=== PATIENT | male | born 1980 | race Caucasian/White ===

== ENCOUNTER 2020-03-21 10:25 | Outpatient (CLI) | payer SELFPAY ==
--- NOTE | 2020-03-21 10:38 | XR_ITS ---
WS: [id number] CHEST 2 VIEWS HISTORY: SHORTNESS OF BREATH COMPARISON: None available. Lungs: Clear with no abnormality. No pleural effusion or pneumothorax. Cardiac size: Normal. Mediastinum/Aorta: Normal mediastinum. Bones: Normal. Surgical clips at the lower neck and thoracic inlet. XR/XR chest 2V* [id number] IMPRESSION: Normal chest.
--- NOTE | 2020-03-21 10:38 | XR_ITS ---
WS: [id number] LUMBAR SPINE: 3 VIEWS TECHNIQUE: AP, lateral and L5-S1 spot. HISTORY: LEFT LEG PARESTHESIA, PARESTHESIA OF SKIN COMPARISON: None available. Posterior lumbar alignment is normal. Pedicles are all identified. No fractures. Disc spaces are preserved. Small osteophytes anteriorly from L3 and L4. Larger osteophytes in the low er thoracic spine. SI joints are symmetric bilaterally. No soft tissue abnormalities. XR/XR lumbar spine 2-3V* [id number] IMPRESSION: 1. No lumbar spine fracture. 2. Mild lumbar spondylosis.
== END 2020-03-21 10:26 | disposition home or self-care (01) ==
LOC: RADWPI 10:29
PROVIDERS: Visit Provider Nurse Practitioner Family
DX: R06.02 Shortness of breath (principal); R20.2 Paresthesia of skin; M47.816 Spondylosis without myelopathy or radiculopathy, lumbar region
CPT/HCPCS: 71046; 72100

== ENCOUNTER 2023-07-26 10:40 | Emergency (ER) | payer OTHER, SELFPAY ==
[2023-07-26 10:56] VITALS: BP 190/116; PULSE 81; RESP 16; TEMP 36.7; O2SAT 96; BMI 39.4
--- NOTE | 2023-07-26 11:55 | ED_ITS ---
HPI - General Adult General: Chief complaint: Animal Bite Stated complaint: tick bite Time Seen by Provider: 07/26/23 11:14 Source: patient and family Mode of arrival: ambulatory Limitations: no limitations History of Present Illness: Patient is a 43-year-old male who presents to ED today with concerns of a tick bite. Patient states a few days ago he noticed a small seed tick to the anterior aspect of his upper right thigh. He states he immediately picked the tick off. States that could not have been attached for more than a few hours. He states since then he noticed a small amount of redness surrounding the bite. He has been scratching and picking at the lesion. No bull's-eye lesion. Sesar coyle states over the past several days he just has not felt well . States he has intermittently felt nauseous. He did have a small amount of abdominal lower discomfort but this has subsided. Patient states he contacted his primary care office who told him to come to the emergency department because he could have a bloodstream infection from the tick bite . Patient has not been running fever s. Of note he arrives to the ED significantly hypertensive with a BP of 190/116. Patient states he never checks his blood pressure at home. He does take lisinopril 20 Mg daily. He also states his blood sugars have been running high-normally in the 200s. He states he only takes glimepiride for his diabetes. He has an upcoming appointment with endocrinology/Dr. Jensen. Denies chest pain, SOB, headache or visual changes. Onset (ago): day(s) Relieving factors: none Exacerbating factors: none Associated symptoms: Reports no associated symptoms and nausea; Deny chest pain, confusion, dyspnea, headache(s), malaise, rash, palpitations, syncope or vomiting Treatments prior to arrival: none Review of Systems Const: Denies: fever(s), chills, body aches, fatigue or malaise Eyes: Denies: change in vision, blurry vision, photophobia, floaters or seeing flashes ENMT: Denies: throat pain, odynophagia, ear or mastoid pain, nasal discharge, nasal congestion or sinus pain Card: Denies: chest pain, palpitations, irregular heart rhythm, edema, swelling of feet/ankles, lightheadedness, syncope, pre-syncope, dyspnea on exertion, orthopnea, leg pain with exertion or acrocyanosis Resp: Denies: dyspnea, productive cough, non-productive cough, wheezing, hemoptysis or chest congestion GI: Reports: abdominal pain (subsided now) and nausea; Denies: vomiting or hematemesis : Denies: flank pain, difficulty urinating, dysuria, urinary frequency, urinary urgency or urinary hesitancy Musc: Denies: neck pain, back pain, extremity pain or joint pain Skin/Breast: Denies: rash Neuro: Denies: headache(s), numbness in extremities, weakness in extremities, sensory changes, difficulty walking, dizziness, vertigo or confusion Physical Exam Const: COMMON NORMALS: no acute distress, patient oriented x3, no limitations and alert GENERAL APPEARANCE: cooperative NUTRITIONAL APPEARANCE: obese ORIENTATION/CONSCIOUSNESS: Yes awake, Yes oriented to person, Yes oriented to place and Yes oriented to time HENMT: COMMON NORMALS: normocephalic and atraumatic HEAD & SCALP: normal to inspection, normocephalic and atraumatic FACE & SINUS: normal facial exam Eye: COMMON NORMALS: no scleral icterus GENERAL EYE: appearance normal, both eyes and all related structures Neck/C-Spine: COMMON NORMALS: full ROM, no lymphadenopathy, supple and no meningeal signs Chest: COMMONS NORMALS: normal inspection of the chest Resp: COMMON NORMALS: normal respiratory effort and clear to auscultation bilaterally AUSCULTATION: clear to auscultation bilaterally Cardio: COMMON NORMALS: regular rate and regular rhythm RATE: regular rate RHYTHM: regular rhythm GI: COMMON NORMALS: Normal to inspection, nondistended, normoactive bowel sounds present, Soft to palpation, non-tender, No hepatosplenomegaly present and no masses PALPATION: Yes Soft to palpation and Yes No hepatosplenomegaly present : COMMON NORMALS: Yes no CVA tenderness BLADDER/KIDNEY EXAM: Yes no CVA tenderness Back/Pelvis: COMMON NORMALS: no CVA tenderness, thoracic and lumbar spine norm al to inspection, no thoracic nor lumbar tenderness and thoraco-lumbar ROM normal Extremity: COMMON NORMALS: normal to inspection GENERAL: Yes normal exam except as noted Neuro: BRAYAN COMA SCALE: document GCS findings [place] coma scale eye opening: Spontaneous [place] coma scale verbal response: Orientated Brayan coma scale motor response: Obey commands [place] coma scale total score: 15 COMMON NORMALS: patient oriented x3, moves all extremities, no focal motor deficits, no sensory deficits noted and gait normal SENSORIUM/ORIENTATION: Yes alert, Yes oriented to person, Yes oriented to place and Yes oriented to time MENINGEAL SIGNS: Yes no meningeal signs Skin: NARRATIVE SKIN EXAM: pt has a small 1cm erythematous nodule with central scab from recent tick bite; he has reaction erythema where bandage was applied but otherwise there is no redness/surrounding cellulitis; no erythema migrans lesion RASHES: no rashes Course Vital Signs: Vital signs: Vital Signs Temperature 98.0 F 07/26/23 10:56 Pulse Rate 75 07/26/23 13:56 Respiratory Rate 18 07/26/23 13:56 Blood Pressure 120/93 07/26/23 13:56 Pulse Oximetry 93 07/26/23 13:56 Oxygen Delivery Me thod Room Air 07/26/23 12:41 MDM - General Adult Medical Decision Making Patient arrives over concern of a tick bite. Clinically tick bite appears benign. There is nothing to suggest Lyme disease. He does not really complain of any signs or symptoms of tick illness however tick panel was collected. He arrives significantly hypertensive with a blood pressure 190/116. This resolved on its own without medication and during my reassessment blood pressure was down in the 140s/80s. Blood pressure at time of discharge is 120/93. Commend he c ontinue taking his lisinopril 20 Mg tablets and keep a blood pressure log at home. If it continually runs elevated he may start taking an additional lisinopril in the evening. Blood work overall is benign apart from his elevated blood sugar. He states sugars normally run in the 200s. He has an upcoming appointment with insole and outsole preparer Dr. Jensen for further evaluation and initiation of insulin therapy. We discussed at length dietary control and I will give him several handouts in regards to diabetic diet. At this time patient is stable for discharge from an emergency standpoint. Recommend follow-up with primary care. Return to ED precautions given. Lab Data 07/26/23 12:32 07/26/23 12:32 Laboratory Results WBC 7.10 10^3/uL (3.29-11.43) 07/26/23 12:32 RBC 5.30 10^6/uL (3.85-5.65) 07/26/23 12:32 Hgb 16.00 g/dL (11.27-16.99) 07/26/23 12:32 Hct 47.2 % (37-53) 07/26/23 12:32 MCV 89.1 fl (82-101) 07/26/23 12:32 MCH 30.2 pg (27-33) 07/26/23 12:32 MCHC 33.9 g/dL (30-55) 07/26/23 12:32 RDW 12.5 % (12.1-15.1) 07/26/23 12:32 Plt Count 228 10^3/cmm (157-399) 07/26/23 12:32 MPV 10.0 fL (7.4-10.4) 07/26/23 12:32 Neut % (Auto) 59.7 % 07/26/23 12:32 Lymph % (Auto) 32.3 % 07/26/23 12:32 Holmes % (Auto) 6.3 % 07/26/23 12:32 Eos % (Auto) 0.8 % 07/26/23 12:32 Baso % (Auto) 0.6 % 07/26/23 12:32 Neut # (Auto) 4.24 10^3/uL (1.8-7.7) 07/26/23 12:32 Lymph # (Auto) 2.3 10^3/uL (0.8-4.8) 07/26/23 12:32 Holmes # (Auto) 0.5 10^3/uL (0.2-0.9) 07/26/23 12:32 Eos # (Auto) 0.1 10^3/uL (0.0-0.8) 07/26/23 12:32 Baso # (Auto) 0.0 10^3/uL (0.0-0.1) 07/26/23 12:32 Nucleated RBC % (auto) 0 % 07/26/23 12:32 Nucleated RBCs # 0.0 /100WBC 07/26/23 12:32 Sodium 136 mmol/L (136-145) 07/26/23 12:32 Potassium 4.0 mmol/L (3.5-5.1) 07/26/23 12:32 Chloride 100 mmol/L (98-107) 07/26/23 12:32 Carbon Dioxide 26 mmol/L (22-29) 07/26/23 12:32 Anion Gap 14.0 (5-19) 07/26/23 12:32 BUN 13 mg/dL (6-20) 07/26/23 12:32 Creatinine 0.7 mg/dL (0.7-1.2) 07/26/23 12:32 GFR Calculation 122.5 mL/min (90-130) 07/26/23 12:32 Glucose 316 mg/dL (65-115) H 07/26/23 12:32 Calculated Osmolality 294 mOsm/kg (285-295) 07/26/23 12:32 Calcium 9.2 mg/dL (8.5-10.5) 07/26/23 12:32 Total Bilirubin 0.4 mg/dL (0.15-1.2) 07/26/23 12:32 AST 21 U/L (0-40) 07/26/23 12:32 ALT 33 U/L (0-41) 07/26/23 12:32 Alkaline Phosphatase 76 U/L (40-130) 07/26/23 12:32 Total Protein 7.2 g/dL (6.6-8.7) 07/26/23 12:32 Albumin 4.3 g/dL (3.5-5.2) 07/26/23 12:32 Globulin 2.9 g/dL (1.3-4.6) 07/26/23 12:32 Urine Color Yellow (Yellow) 07/26/23 12:17 Urine Appearance Clear (CLEAR) 07/26/23 12:17 Urine pH 7 (5-7) 07/26/23 12:17 Ur Specific [place] 1.010 (1.005-1.030) 07/26/23 12:17 Urine Protein Neg (Negative) 07/26/23 12:17 Urine Glucose (UA) 4+ (Normal) H 07/26/23 12:17 Urine Ketones 2+ (Negative) H 07/26/23 12:17 Urine Blood Neg (Negative) 07/26/23 12:17 Urine Nitrate Negative (Negative) 07/26/23 12:17 Urine Bilirubin Neg (Negative) 07/26/23 12:17 Urine Urobilinogen Norm mg/dL (Negative) 07/26/23 12:17 Ur Leukocyte Esterase Negative (Negative) 07/26/23 12:17 No radiology studies performed this visit Discharge Plan Discharge Patient Disposition: Home Clinical Impression: Tick bite Qualifiers: Encounter type: initial encounter Site of tick bite: hip Laterality: right Qualified Code(s): S70.261A - Insect bite (nonvenomous), right hip, initial encounter Hypertension Qualifiers: Hypertension type: unspecified Qualified Code(s): I10 - Essential (primary) hypertension Diabetes mellitus Qualifiers: Diabetes mellitus type: type 2 Diabetes mellitus buttermaker continuous churn insulin use: unspecified buttermaker continuous churn insulin use status Diabetes mellitus complication status: without complication Qualified Code(s): E11.9 - Type 2 diabetes mellitus without complications Condition: Stable Prescriptions: No Action vitamin B complex [B-Complex] Tablet 1 tab PO DAILY PRN (Reason: unknown) atorvastatin 40 mg tablet 40 mg PO QPM Aspir-81 81 mg Tablet,Delayed Release (Dr/Ec) 81 mg PO .ONE TIME DOSE lisinopril 10 mg tablet 20 mg PO QAM glimepiride 4 mg tablet 4 mg PO BID levothyroxine 200 mcg tablet 200 mcg PO QAM Saline [place] 0.9 % Aerosol,[place] See Rx Instructions .ROUTE .COMPLEX Rx Instructions: 2 sprays qam magnesium oxide 400 mg magnesium Tablet 400 mg PO DAILY PRN (Reason: unknown) albuterol sulfate 90 mcg/actuation HFA aerosol inhaler 2 puff inhalation Q6H PRN (Reason: Shortness Of Breath) Flonase Allergy Relief 50 mcg/actuation spray,suspension 2 spray intranasal DAILY PRN (Reason: Allergy Symptoms) Rx Instructions: administer into each nostril Discharge Orders: Discharge ED (Routine); Ordered 07/26/23 Ordered By: Shyann Soliman Referrals: Arleen Barraza FNP [Primary Care Provider] - Patient Instructions: Diabetes and Diet, Basic Carbohydrate Counting (DC), Meal Planning with the Plate Method (DC), Meal Planning with Diabetes Exchanges (DC), Diabetes and Nutrition (ED) Activity Restrictions/Additional Instructions: As we discussed your blood pressure was very elevated upon arrival to the emergency department at 190/116. This has seemed to resolve on its own without medications and repeat blood pressure was 149/88. As we discussed I would like you to keep a blood pressure log at home and monitor twice daily. If blood pressure continually runs 160/100 he may take an additional lisinopril in the evening. You need to follow-up with primary care so they can adjust medications if needed based on these logs. As we discussed I would like you to continue your current plan to follow-up with Dr. Jensen for further evaluation and better control of your diabetes. I have given you information in regards to diabetic diet to hopefully better control this until you can see her. Coding Level of Care Code ED Permit Review Assistant for Agnes Nevarez
[2023-07-26 12:15] VITALS: BP 230/120
[2023-07-26 12:41] VITALS: BP 163/93; PULSE 68; RESP 12; O2SAT 94
[2023-07-26 12:41] LABS: Basophils % 0.6 %; Eosinophils # 0.1 10^3/uL (0.0-0.8); Eosinophils % 0.8 %; Hematocrit 47.2 % (37-53); Lymphocytes # 2.3 10^3/uL (0.8-4.8); Lymphocytes % 32.3 %; Mean Corpuscular HGB Conc 33.9 g/dL (30-55); Mean Corpuscular Hemoglobin 30.2 pg (27-33); Mean Corpuscular Volume 89.1 fl (82-101); Monocytes # 0.5 10^3/uL (0.2-0.9); Monocytes % 6.3 %; Neutrophils # 4.24 10^3/uL (1.8-7.7); Neutrophils % 59.7 %; Nucleated Red Blood Cells % 0 %; Platelet Count 228 10^3/cmm (157-399); Red Cell Distribution Width 12.5 % (12.1-15.1)
[2023-07-26 12:44] LABS: Add Urine Microscopic? NO; Charge for UA Resulting for Rev
[2023-07-26 12:58] LABS: Bilirubin Urine Neg (Negative); Blood Urine Neg (Negative); Glucose Urine UA 4+ (Normal); Ketones Urine 2+ (Negative); Leukocyte Esterase Urine Negative (Negative); Nitrate Urine Negative (Negative); Protein Urine Neg (Negative); Urine Appearance Clear (CLEAR); Urine Color Yellow (Yellow); Urobilinogen Urine Norm (Negative); pH Urine 7 (5-7)
[2023-07-26 12:59] VITALS: BP 149/88; PULSE 66; RESP 12; O2SAT 96
[2023-07-26 13:03] LABS: Alanine Aminotransferase 33 U/L (0-41); Albumin Level 4.3 g/dL (3.5-5.2); Alkaline Phosphatase 76 U/L (40-130); Aspartate Amino Transferase 21 U/L (0-40); Blood Urea Nitrogen 13 mg/dL (6-20); Calcium 9.2 mg/dL (8.5-10.5); Carbon Dioxide 26 mmol/L (22-29); Chloride 100 mmol/L (98-107); Globulin 2.9 g/dL (1.3-4.6); Glomerular Filtration Rate 122.5 mL/min (90-130); Glucose 316 mg/dL (65-115); Osmolality Calculated 294 mOsm/kg (285-295); Sodium 136 mmol/L (136-145); Total Bilirubin 0.4 mg/dL (0.15-1.2); Total Protein 7.2 g/dL (6.6-8.7)
[2023-07-26 13:56] VITALS: BP 120/93; PULSE 75; RESP 18; O2SAT 93
[2023-07-27 14:55] LABS: Lyme AB Screen <0.90 index
[2023-07-29 01:20] LABS: E. Chaffeensis AB IGG <1:64; E. Chaffeensis AB IGM <1:20
[2023-07-29 16:18] LABS: RMSF IGG NOT DETECTED; RMSF IGM NOT DETECTED
== END 2023-07-26 13:53 | disposition home or self-care (01) ==
PROVIDERS: Emergency Provider Physician Assistant; PCP Nurse Practitioner Family
DX: S70.261A Insect bite (nonvenomous), right hip, initial encounter (principal); I10 Essential (primary) hypertension; E11.9 Type 2 diabetes mellitus without complications; W57.XXXA Bitten or stung by nonvenomous insect and other nonvenomous arthropods, initial encounter; Z79.82 Long term (current) use of aspirin; Z79.84 Long term (current) use of oral hypoglycemic drugs
CPT/HCPCS: 36415; 80053; 81003; 85025; 86618; 86666; 86757; 99283

== ENCOUNTER → 2023-08-18 11:32 | Outpatient (BNVA) | payer OTHER, SELFPAY | PROVIDERS: PCP Nurse Practitioner Family; Referring Provider Nurse Practitioner Family; Visit Provider Internal Medicine | DX: E11.9 Type 2 diabetes mellitus without complications (principal) | CPT/HCPCS: 36415; 80053; 80061; 82044; 83036; 84439; 84443 ==

== ENCOUNTER → 2023-09-09 09:55 | Outpatient (BNVA) | payer OTHER, SELFPAY | PROVIDERS: PCP Nurse Practitioner; Visit Provider Nurse Practitioner | DX: I10 Essential (primary) hypertension (principal); E11.9 Type 2 diabetes mellitus without complications; R42 Dizziness and giddiness; M19.011 Primary osteoarthritis, right shoulder; R20.0 Anesthesia of skin; R20.2 Paresthesia of skin; Z87.891 Personal history of nicotine dependence | CPT/HCPCS: 71046 ==

== ENCOUNTER → 2023-10-18 09:05 | Outpatient (BNVA) | payer OTHER, SELFPAY | PROVIDERS: PCP Nurse Practitioner; Referring Provider Nurse Practitioner; Visit Provider Nurse Practitioner | DX: M25.561 Pain in right knee (principal); M25.552 Pain in left hip; M25.511 Pain in right shoulder | CPT/HCPCS: 73030; 73502; 73562 ==

== ENCOUNTER 2023-10-20 09:14 | Outpatient (CLI) | payer OTHER, SELFPAY ==
--- NOTE | 2023-10-20 10:00 | US_ITS ---
WS: [id number] ULTRASOUND THYROID TECHNIQUE: Ultrasound of the thyroid. CLINICAL INFORMATION: R22.1 - Localized swelling, mass and lump, neck COMPARISON: None. FINDINGS: Thyroid: Prior postoperative changes subtotal thyroidectomy. No thyroid tissue in the LEFT thyroid be d or isthmus Solid-appearing heterogeneous nodule RIGHT thyroid measuring 2.9 x 2.4 x 4.1 cm. Cervical lymphadenopathy: None. IMPRESSION: 1. 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 2. Prior postoperative changes subtotal thyroidectomy. No thyroid tissue in the LEFT thyroid bed or isthmus.
[2023-10-20 10:06] LABS: Creatinine Urine, Random 94 mg/dL (39-259); Microalbumin Random Urine 4 ug/dL (0-20)
[2023-10-20 10:09] LABS: Microalbum Creatinine Ratio Ur 43 mg/dL (0-20)
[2023-10-20 10:16] LABS: Alanine Aminotransferase 27 U/L (0-41); Albumin Level 4.7 g/dL (3.5-5.2); Alkaline Phosphatase 74 U/L (40-130); Anion Gap 17.4 (5-19); Aspartate Amino Transferase 18 U/L (0-40); Blood Urea Nitrogen 14 mg/dL (6-20); Calcium 9.5 mg/dL (8.5-10.5); Carbon Dioxide 25 mmol/L (22-29); Chloride 100 mmol/L (98-107); Chol HDL Ratio 3.95 mg/dL (1.0-5.00); Cholesterol 146 mg/dL (0-200); Globulin 3.3 g/dL (1.3-4.6); Glucose 188 mg/dL (65-115); HDL Cholesterol 37 mg/dL (60-100); LDL Cholesterol Calculated 83 mg/dL (50-129); LDL HDL Ratio 2.24 RATIO (0.00-3.22); Osmolality Calculated 291 mOsm/kg (285-295); Potassium 4.4 mmol/L (3.5-5.1); Sodium 138 mmol/L (136-145); Thyroid Stimulating Hormone 0.26 uIU/mL (0.27-4.20); Total Bilirubin 0.7 mg/dL (0.15-1.2); Triglycerides 128 mg/dL (0-150)
[2023-10-20 12:14] LABS: Estmated Average Glucose 229; Hemoglobin A1C 9.6 % (4.0-6.0)
[2023-10-20 13:16] LABS: Free T4 Free Thyroxine 2.06 ng/dL (0.82-1.77)
== END 2023-10-20 09:15 | disposition home or self-care (01) ==
LOC: RAD 09:16
PROVIDERS: Internal Medicine; PCP Nurse Practitioner; Visit Provider Nurse Practitioner
DX: E04.1 Nontoxic single thyroid nodule (principal); R22.1 Localized swelling, mass and lump, neck; E11.9 Type 2 diabetes mellitus without complications; E89.0 Postprocedural hypothyroidism
CPT/HCPCS: 36415; 76536; 80053; 80061; 82044; 83036; 84439; 84443

== ENCOUNTER → 2023-10-27 09:06 | Outpatient (BNVA) | payer OTHER, SELFPAY | PROVIDERS: PCP Nurse Practitioner; Referring Provider Internal Medicine; Visit Provider Internal Medicine | DX: E03.9 Hypothyroidism, unspecified (principal); E16.2 Hypoglycemia, unspecified; E78.00 Pure hypercholesterolemia, unspecified | CPT/HCPCS: 83001; 83002; 84403; 84439 ==

== ENCOUNTER → 2023-10-28 13:04 | Outpatient (BNVA) | payer OTHER, SELFPAY | PROVIDERS: PCP Nurse Practitioner; Referring Provider Nurse Practitioner; Visit Provider Internal Medicine | DX: I10 Essential (primary) hypertension (principal) | CPT/HCPCS: 93005 ==

== ENCOUNTER → 2023-11-03 10:29 | Outpatient (BNVA) | payer OTHER, SELFPAY | PROVIDERS: PCP Nurse Practitioner; Visit Provider Nurse Practitioner | DX: E11.9 Type 2 diabetes mellitus without complications (principal); E03.9 Hypothyroidism, unspecified; E16.2 Hypoglycemia, unspecified; E78.00 Pure hypercholesterolemia, unspecified | CPT/HCPCS: 84402; 84439 ==

== ENCOUNTER 2023-11-10 13:00 | Outpatient (CLI) | payer OTHER, SELFPAY ==
--- NOTE | 2023-11-10 11:00 | EV_ITS ---
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 Interpretive Statements Event monitor: 1. Monitoring period was from 11/10/2023 till 12/09/2023. 2. Baseline heart rhythm was normal sinus rhythm with heart rate of 74 bpm. 3. Average heart rate was 78 bpm. Maximum heart rate was 144 bpm and patient was in sinus tachycardia at that time. This was recorded on 11/28/2023 at 1:26 PM. Minimum heart rate was 46 bpm. Patient had sinus bradycardia. This was recorded at 6:51 AM on 11/11/2023. Less than 1% ventricular ectopic beats. Less than 1% supraventricular ectopic beats. 4. No atrial fibrillation or arrhythmias seen. 5. No pauses seen 6. Patient reported symptoms of dizziness, lightheadedness did not correlate with arrhythmias. Electronically Signed On 12-29-2023 10:47:03 OFFICE ADMIN by Arthur Marcelino M.D. [id number]
== END 2023-11-10 13:01 | disposition home or self-care (01) ==
LOC: RAD 11-15 09:36
PROVIDERS: PCP Nurse Practitioner; Visit Provider Internal Medicine
DX: R00.2 Palpitations (principal); M25.511 Pain in right shoulder; G89.29 Other chronic pain
CPT/HCPCS: 73030; 93228

== ENCOUNTER → 2023-11-17 09:52 | Outpatient (BNVA) | payer OTHER, SELFPAY | PROVIDERS: PCP Nurse Practitioner; Referring Provider Internal Medicine; Visit Provider Internal Medicine | DX: E03.9 Hypothyroidism, unspecified (principal) | CPT/HCPCS: 84439 ==

== ENCOUNTER 2023-12-09 09:02 | Outpatient (CLI) | payer OTHER, SELFPAY ==
--- NOTE | 2023-12-09 09:30 | MR_ITS ---
WS: [id number] MRI RIGHT SHOULDER HISTORY: M25.511 - Pain in right shoulder COMPARISON: Radiograph 11/10/2023 TECHNIQUE: Multiplanar sequences of the shoulder joint are submitted. Moderate AC joint arthritis. 4 mm osteophyte encroaching upon the myotendinous portion of the suprasp inatus. Mild narrowing of the AC joint. Small erosive changes in the head of the clavicle. No signifi cant subacromial subdeltoid bursal fluid. No subacromial impingement. Biceps tendon in normal positio n. No os acromion. No muscle atrophy or edema. Very mild tendinopathy in the distal supraspinatus tendon. No tear. Tracy l glenohumeral joint. Small subacromial cysts are noted in the posterolateral humeral head. Cortical irregularity involving the anterior humeral head. Cortical irregularities and osteochondral changes a re near the site of the biceps tendon attachment. There is a small amount of fluid in the subacromial bursa and extending into the axillary pouch. There is abnormal signal throughout a large portion of the superior labrum. There is also a truncated appearance of the inferior labrum. IMPRESSION: 1. Moderate AC joint arthritis with a 4 mm osteophyte encroaching upon the supraspinatus muscle and t endon. 2. No rotator cuff tear. 3. Erosive changes in the distal clavicle. 4. Abnormal signal in the superior and inferior labrum. Suspicious for tears. 5. Cortical irregularity involving the posterolateral and the anterior humeral head. 6. Small joint effusion.
== END 2023-12-09 09:03 | disposition home or self-care (01) ==
LOC: RAD 09:03
PROVIDERS: PCP Nurse Practitioner; Visit Provider Specialist
DX: M19.011 Primary osteoarthritis, right shoulder (principal); M25.711 Osteophyte, right shoulder; R93.7 Abnormal findings on diagnostic imaging of other parts of musculoskeletal system; G89.29 Other chronic pain; M25.411 Effusion, right shoulder
CPT/HCPCS: 73221

== ENCOUNTER → 2023-12-22 08:08 | Outpatient (BNVA) | payer OTHER, SELFPAY | PROVIDERS: PCP Nurse Practitioner; Referring Provider Internal Medicine; Visit Provider Internal Medicine | DX: E03.9 Hypothyroidism, unspecified (principal); R79.89 Other specified abnormal findings of blood chemistry | CPT/HCPCS: 84403; 84439; 84443 ==

== ENCOUNTER → 2023-12-29 10:42 | Outpatient (BNVA) | payer OTHER, SELFPAY | PROVIDERS: PCP Nurse Practitioner; Visit Provider Internal Medicine | DX: E11.9 Type 2 diabetes mellitus without complications (principal); E16.2 Hypoglycemia, unspecified; E78.00 Pure hypercholesterolemia, unspecified | CPT/HCPCS: 36415; 82784; 83516; G0103 ==

== ENCOUNTER → 2024-01-05 09:43 | Outpatient (BNVA) | payer OTHER, SELFPAY | PROVIDERS: PCP Nurse Practitioner; Visit Provider Nurse Practitioner | DX: T78.1XXA Other adverse food reactions, not elsewhere classified, initial encounter (principal); Y99.9 Unspecified external cause status | CPT/HCPCS: 86003 ==

== ENCOUNTER 2024-01-06 10:51 | Outpatient (CLI) | payer OTHER, SELFPAY ==
--- NOTE | 2024-01-06 11:42 | ECG_ITS ---
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 Interpretive Statements NAME OF STUDY: TREADMILL STRESS TEST INDICATION: [Chest Pain, ] EXERCISE DATA: The patient was exercised by Obey protocol. Baseline heart rate was 125/90 beats per minute. Baseline blood pressure was 125/90 millimeters of mercury. Maximal predicted heart rate was 176 beats per minute. Maximum heart rate achieved was 150, which was 85% of the maximum predicted heart rate. Maximum blood pressure was 185/95 millimeters of mercury. Total exercise time was 11 minutes and 1 seconds. Maximum METs achieved was 14.3. The reason for ending the test was targy heart rate achieved. The patient complained of shortness of breath during the stress test, which then resolved at the end of the test. ELECTROCARDIOGRAM: BASELINE: Showed sinus rhythm, normal axis, no significant ST-T changes at the baseline noted. [] EXERCISE: At the peak exercise level, [] No significant ST-T changes suggestive of ischemia noted. [] RECOVERY: During the recovery period, heart rate dropped appropriately. No significant ST-T changes in the recovery suggestive of ischemia noted. [] CONCLUSION: 1. Exercise capacity is excellent 2. Heart rate response was appropriate 3. Blood pressure response was appropriate 4. Symptoms not suggestive of ischemia. 5. Stress test does not show ischemia Electronically Signed On 01-13-2024 11:06:44 CDT by Arthur Marcelino M.D. [id number]
[2024-01-06 12:05] VITALS: BMI 35.2
[2024-01-06 12:58] VITALS: BP 168/98; PULSE 96
== END 2024-01-06 10:52 | disposition home or self-care (01) ==
PROVIDERS: PCP Nurse Practitioner; Visit Provider Internal Medicine
DX: R07.9 Chest pain, unspecified (principal)
CPT/HCPCS: 93017

== ENCOUNTER 2024-01-13 08:51 | Outpatient (CLI) | payer OTHER, SELFPAY ==
--- NOTE | 2024-01-13 09:00 | USCV_ITS ---
Gabriel Davies Age: 43 Gender: M : 1980 Exam Date: 01/13/2024 09:07 Ordering Phys: Sarai AbelP CONTINUUM OF CARE MANAGER Technologist: PATRICIA [place] [facility] [place]: VERTIGO AND HTN BP: 164 / 90 HR: 47 Rhythm: Sinus Technical Quality: Adequate MEASUREMENTS (Male / Female) Normal Values 2D ECHO LV Diastolic Diameter PLAX 4.2 cm 4.2 - 5.9 / 3.9 - 5.3 cm IVS Diastolic Thickness 1.5 cm 0.6 - 1.0 / 0.6 - 0.9 cm IVS Systolic Thickness 2.0 cm LVPW Diastolic Thickness 2.2 cm 0.6 - 1.0 / 0.6 - 0.9 cm LVPW Systolic Thickness 3.1 cm LVOT Diameter 2.0 cm LV Ejection Fraction 2D Teich 51.3 % LV Ejection Fraction MOD 2C 56.7 % LV Ejection Fraction 2C AL 58.9 % LA Diameter 3.9 cm RA Systolic Volume 4C AL 33.4 ml RA Systolic Volume 4C MOD 32.3 ml Aorta at Sinotubular Diameter 2.6 cm IVC Diameter 1.7 cm M-MODE LA Ao Ratio MM 0.9 AV Cusp Separation MM 1.6 cm DOPPLER AV Peak Velocity 134.0 cm/s LVOT Peak Velocity 109.0 cm/s AV Area Cont Eq vti 3.0 cm squared AV Area Cont Eq pk 2.5 cm squared MV Peak Velocity 87.0 cm/s MV Area PHT 3.5 cm squared Mitral E to A Ratio 1.3 TR Peak Velocity 145.0 cm/s TR Peak Gradient 8.4 mmHg TR Mean Velocity 119.0 cm/s TR Mean Gradient 6.1 mmHg TR Velocity Time Integral 39.8 cm TV Peak E Velocity 51.0 cm/s Right Atrial Pressure 3.0 mmHg Pulmonary Artery Systolic Pressu 11.4 mmHg PV Peak Velocity 115.0 cm/s RV Ejection Time 0.4 s FINDINGS Left Ventricle Left ventricle is normal in size. LV systolic function is normal with EF of 55-60%. No regional wall motion normalities are seen. Diastolic function is normal Right Ventricle Normal in size and function Right Atrium Normal in size Left Atrium Normal in size Mitral Valve Structurally normal mitral valve. Mild mitral regurgitation. Aortic Valve Structurally normal aortic valve. No significant stenosis or regurgitation. Tricuspid Valve Insufficient TR jet to evaluate RVSP Pulmonic Valve Not well-visualized Pericardium Normal Aorta Normal in size IVC Normal in size CONCLUSIONS LV systolic function is normal with EF of 55-60%. Diastolic function is normal Mild mitral regurgitation No comparison studies are available. Arthur Marcelino MD (Electronically Signed) Final Date: 23 January 2024 13:38 S
--- NOTE | 2024-01-13 12:45 | US_ITS ---
WS: [id number] ULTRASOUND THYROID FNA CLINICAL INFORMATION: thyroid nodule TECHNIQUE: Ultrasound-guided FNA FINDINGS: The procedure including risks, benefits, and complications were discussed with the patient who agreed to proceed. Timeout was performed. Using sterile technique patient was prepped and draped in usual sterile fashion. After 1% lidocaine, using ultrasound guidance, a 25-gauge needle was advanc ed into the RIGHT thyroid nodule. 5 passes were made with active aspiration. Pathology was present fo r slide preparation. No immediate complications. Patient remained in the ultrasound suite 10 minutes postprocedure with intermittent ultrasound to ens ure no hematoma. No hematoma 10 minutes postprocedure. IMPRESSION: Uncomplicated ultrasound-guided thyroid FNA RIGHT thyroid nodule
== END 2024-01-13 08:52 | disposition home or self-care (01) ==
PROVIDERS: PCP Nurse Practitioner; Visit Provider Internal Medicine
DX: E04.1 Nontoxic single thyroid nodule (principal); I10 Essential (primary) hypertension; R42 Dizziness and giddiness; I34.0 Nonrheumatic mitral (valve) insufficiency
CPT/HCPCS: 10005; 88173; 93306

== ENCOUNTER 2024-02-02 07:46 | Outpatient (CLI) | payer OTHER, SELFPAY ==
--- NOTE | 2024-02-02 07:45 | US_ITS ---
WS: [id number] ULTRASOUND ABDOMEN LIMITED CLINICAL INFORMATION: celiac disease COMPARISON: None. FINDINGS: Liver Size: Enlarged Craniocaudal length: 23.2 cm. Echogenicity: Coarse Surface nodularity: None. Mass (size and location): None. Normal flow in the main portal vein Bile ducts Intrahepatic ducts: Normal. Common bile duct diameter: 0.4 cm. Gallbladder Normal. Gallstones: None. Gallbladder sludge: None. Gallbladder wall thickening: None. Pericholecystic fluid: None. Sonographic Denis sign: Absent. Pancreas Normal as visualized. Right kidney: Normal. Hydronephrosis: None. Size: 13.6 cm x 5.5 cm x 6.4 cm. Abdominal aorta and IVC Visualized portions are normal. Ascites: None. IMPRESSION: 1. Hepatomegaly with coarse hepatic echogenicity likely due to fatty infiltration. Recommend correla tion with liver function tests. 2. Normal gallbladder and normal common bile duct. 3. No hydronephrosis in the RIGHT kidney. 4. No ascites.
--- NOTE | 2024-02-02 07:50 | MR_ITS ---
WS: [id number] MRI RIGHT SHOULDER ARTHROGRAM HISTORY: right shoulder injury COMPARISON: Noncontrast MRI shoulder 12/09/2023 TECHNIQUE: Pre and postcontrast imaging. Gadolinium mixture was injected under fluoroscopy. Coronal T 1 fat sat, sagittal T2 fat sat, coronal T2 fat sat, axial proton density, axial T1 nonfat saturation submitted. Uncomplicated access into the shoulder joint. The contrast injection was very difficult. The joint sp arnaldo appears to be very scarred down. Significant amount of pressure was needed to attempt distention of the joint. The needle was retracted slightly in an attempt to reposition the needle better into th e joint space. At that time the needle was external to the joint. Some of the contrast injected is ex ternal to the joint but I believe this is due to the repositioning of the needle. Previously described possible superior and inferior labral tears do not distend with the contrast inj ection. These are not likely labral tears. There is one area in which the contrast does extend throug h the subscapular tendon. Possibility of a subscapularis tendon tear should be considered. Patient wa s unable to remain still for this examination therefore there is some artifact from breathing motion. IMPRESSION: 1. No labral tears are identified on the arthrogram portion of this examination. 2. The injection into the joint space was extremely difficult. Favor the joint capsule is probably s carred down. After attempting to readjust the needle the injection became external to the joint space . Contrast is external to the joint space due to the injection. 3. Very small amount of increased contrast signal in the distal subscapularis tendon. This may be at the tendon tear or the external contrast injection. 4. No loose body. 5. Mild AC joint arthritis.
--- NOTE | 2024-02-02 08:30 | IR_ITS ---
WS: [email or web address] RIGHT SHOULDER ARTHROGRAM UNDER FLUOROSCOPY. PRIOR TO MRI EVALUATION. HISTORY: right shoulder injury COMPARISON: None available. FLUOROSCOPY TIME: 1min [id number] # of spot films: 1 Procedure, risks and complications were explained to the patient. Consent has been obtained. Under fluoroscopic guidance the skin is marked over the medial superior third of the humeral head, cl eansed with ChloraPrep and anesthetized with lidocaine. 22-gauge spinal needle is inserted to the cor debra of the humeral head. Test injection with Omnipaque reveals the needle is appropriately positioned in the joint. A mixture of 10 cc sterile saline, 5 cc Omnipaque and 0.1 mmol gadolinium are injected under fluoroscopic guidance. Patient tolerated the joint distention well. No complications. Very difficult injection of the contrast into the joint space. The capsule appeared scarred down with the joint space being very small. After reattempting positioning of the needle of the injection jessy me extracapsular. IMPRESSION: Slightly complicated RIGHT shoulder joint injection prior to MRI.
== END 2024-02-02 07:47 | disposition home or self-care (01) ==
LOC: RAD 07:46
PROVIDERS: PCP Nurse Practitioner; Visit Provider Surgery
DX: S43.431A Superior glenoid labrum lesion of right shoulder, initial encounter (principal); K90.0 Celiac disease; M19.011 Primary osteoarthritis, right shoulder; R16.0 Hepatomegaly, not elsewhere classified; X58.XXXA Exposure to other specified factors, initial encounter
CPT/HCPCS: 23350; 73222; 76705; 77002

== ENCOUNTER 2024-02-10 08:12 | Outpatient (CLI) | payer OTHER, SELFPAY ==
--- NOTE | 2024-02-10 08:00 | CT_ITS ---
WS: [email or web address] CT NECK WITH CONTRAST HISTORY: Thyroid nodule of the neck, prior LEFT thyroidectomy. TECHNIQUE: Contiguous 2 mm axial images are performed through the neck with intravenous contrast. Sag ittal and coronal reformats are also submitted. All CT scans at [facility] use at least one o f these dose optimization techniques: automated exposure control; mA and/or kV adjustment per patient size (includes targeted exams where dose is matched to clinical indication); or iterative reconstruc tion. CONTRAST: CONTRAST: Omnipaque 350; 100 mL IV. DLP: 246.95 mGy.cm COMPARISON: Soft tissue ultrasound 01/13/2024 Heterogeneous enhancing mass within the RIGHT thyroid. Mass extends over a length of 3.4 cm. Mass me asures 2.9 cm transversely and 2.6 cm anterior posterior. There are few calcifications and heterogene ity. Surgical clips are noted from prior LEFT thyroidectomy. Mass is similar in appearance and size c ompared to the thyroid evaluation on 01/13/2024. Oropharynx and nasopharynx are negative. Normal parapharyngeal fat. Submandibular glands and parotid glands are negative. There are small benign cervical chain lymph nodes. No adenopathy. No osseous abnormalities. Visualized portions of the skull base demonstrate no abnormalities. Orbits and globes are within norm al limits. No soft tissue masses. Small mucous retention cyst in the posterior LEFT sphenoid sinus. Lung apices are clear. IMPRESSION: 1. Heterogeneous RIGHT thyroid nodule measures 2.9 x 2.6 x 3.4 cm. Very similar in size as compared to the prior ultrasound on 01/12/2014. 2. Prior LEFT thyroidectomy. 3. No cervical chain adenopathy.
[2024-02-10] MEDS: iohexol 350 mg/mL 500 mL Btl (per mL) IV (09:02)
== END 2024-02-10 08:13 | disposition home or self-care (01) ==
LOC: RAD 08:12
PROVIDERS: PCP Nurse Practitioner; Visit Provider Otolaryngology
DX: E04.1 Nontoxic single thyroid nodule (principal)
CPT/HCPCS: 70491; Q9967

== ENCOUNTER 2024-04-05 06:00 | Outpatient (RCR) | payer OTHER, SELFPAY | END 2024-04-30 23:59 | disposition home or self-care (01) | LOC: MPT 06:00 | PROVIDERS: Visit Provider Specialist | DX: M54.2 Cervicalgia (principal); M75.01 Adhesive capsulitis of right shoulder | CPT/HCPCS: 97110; 97140; 97162; G0283 ==

== ENCOUNTER 2024-05-01 06:00 | Outpatient (RCR) | payer OTHER, SELFPAY | END 2024-05-31 23:59 | disposition home or self-care (01) | LOC: MPT 06:00 | PROVIDERS: Visit Provider Specialist | DX: M75.01 Adhesive capsulitis of right shoulder (principal) | CPT/HCPCS: 97110; 97140; G0283 ==

== ENCOUNTER 2024-06-01 06:00 | Outpatient (RCR) | payer OTHER, SELFPAY | END 2024-07-01 23:59 | disposition home or self-care (01) | LOC: MPT 06:00 | PROVIDERS: PCP Nurse Practitioner; Visit Provider Specialist | DX: M54.2 Cervicalgia (principal); M75.01 Adhesive capsulitis of right shoulder | CPT/HCPCS: 97110; 97140; G0283 ==

== ENCOUNTER 2024-06-08 09:01 | Outpatient (CLI) | payer OTHER, SELFPAY ==
--- NOTE | 2024-06-08 09:18 | XR_ITS ---
WS: [email or web address] XR shoulder LT min 2V* [id number] REASON FOR EXAM: S46.912A - Strain of unspecified muscle, fascia and tendo... FINDINGS: No fracture or focal bone lesion. The acromioclavicular joint is intact without significant narrowing. There is mild subchondral sclero sis and osteophytosis. The glenohumeral joint space is not optimally demonstrated. There does not appear to be significant n arrowing. There is minimal subchondral sclerosis in the acetabulum. Minimal sclerosis in the biceps tuberosity. 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 Minimal osteoarthritis in the glenohumeral joint. Minimal rotator cuff tendon arthropathy.
--- NOTE | 2024-06-08 09:41 | XR_ITS ---
WS: [email or web address] XR cervical spine 3V* [id number] REASON FOR EXAM: S16.1XXA - Strain of muscle, fascia and tendon at neck le... FINDINGS: Straightening of the normal lordosis of the cervical spine. Normal odontoid and vertebral bodies. Disc spaces are intact and relatively well preserved. Mild narrowing of the C5-C6 disc space with end plate sclerosis and posterior and anterior osteophytosis of C5 and C6. 2 mm of anterolisthesis of C4 on C5. Multiple surgical clips in the neck denoting previous thyroid surgery. There is mild displacement of the trachea to the left at the C7 level. This corresponds with the inho mogeneously enhancing mass in the right thyroid bed seen on the CT scan of 02/10/2024. XR/XR cervical spine 3V* [id number] IMPRESSION: Mild degenerative spondylosis. Mild mass effect on the trachea as above.
== END 2024-06-08 09:02 | disposition home or self-care (01) ==
LOC: RAD 09:05
PROVIDERS: PCP Nurse Practitioner; Visit Provider Nurse Practitioner
DX: S16.1XXA Strain of muscle, fascia and tendon at neck level, initial encounter (principal); S46.912A Strain of unspecified muscle, fascia and tendon at shoulder and upper arm level, left arm, initial encounter; M25.78 Osteophyte, vertebrae; M43.12 Spondylolisthesis, cervical region
CPT/HCPCS: 72040; 73030

== ENCOUNTER → 2024-06-15 10:46 | Outpatient (BNVA) | payer OTHER, SELFPAY | PROVIDERS: PCP Nurse Practitioner; Visit Provider Nurse Practitioner | DX: E11.9 Type 2 diabetes mellitus without complications (principal); E78.00 Pure hypercholesterolemia, unspecified; E16.2 Hypoglycemia, unspecified | CPT/HCPCS: 80053; 80061; 82043; 83036; 84403; 85025; G0103 ==

== ENCOUNTER → 2024-06-21 10:37 | Outpatient (BNVA) | payer OTHER, SELFPAY | PROVIDERS: PCP Nurse Practitioner; Visit Provider Internal Medicine | DX: E11.649 Type 2 diabetes mellitus with hypoglycemia without coma (principal); E03.9 Hypothyroidism, unspecified | CPT/HCPCS: 36415; 84439; 84443; 85025 ==

== ENCOUNTER → 2024-06-29 09:07 | Outpatient (BNVA) | payer OTHER, SELFPAY | PROVIDERS: PCP Nurse Practitioner; Referring Provider Nurse Practitioner; Visit Provider Orthopaedic Surgery | DX: M54.2 Cervicalgia (principal) | CPT/HCPCS: 72050 ==

== ENCOUNTER 2024-07-02 06:00 | Outpatient (RCR) | payer OTHER, SELFPAY | END 2024-07-26 23:59 | disposition home or self-care (01) | LOC: MPT 06:00 | PROVIDERS: PCP Nurse Practitioner; Visit Provider Specialist | DX: M75.01 Adhesive capsulitis of right shoulder (principal); M54.2 Cervicalgia | CPT/HCPCS: 97110; 97140; G0283 ==

== ENCOUNTER 2024-07-26 06:00 | Outpatient (RCR) | payer OTHER, SELFPAY | END 2024-07-31 23:59 | disposition home or self-care (01) | LOC: MPT 06:00 | PROVIDERS: PCP Nurse Practitioner; Visit Provider Orthopaedic Surgery | DX: M54.2 Cervicalgia (principal) | CPT/HCPCS: 97162 ==

== ENCOUNTER 2024-08-01 06:00 | Outpatient (RCR) | payer OTHER, SELFPAY | END 2024-08-31 23:59 | disposition home or self-care (01) | LOC: MPT 06:00 | PROVIDERS: PCP Nurse Practitioner; Visit Provider Orthopaedic Surgery | DX: M54.2 Cervicalgia (principal) | CPT/HCPCS: 97110; 97140; G0283 ==

== ENCOUNTER 2024-08-03 08:56 | Oncology outpatient (recurring) (ONCR) | payer OTHER, SELFPAY ==
[2024-08-03 09:45] LABS: Basophils # 0.1 10^3/uL (0.0-0.1); Basophils % 0.7 %; Eosinophils # 0.4 10^3/uL (0.0-0.8); Eosinophils % 5.3 %; Hematocrit 49.3 % (37-53); Lymphocytes # 2.2 10^3/uL (0.8-4.8); Lymphocytes % 30.6 %; Mean Corpuscular HGB Conc 32.3 g/dL (30-55); Mean Corpuscular Hemoglobin 29.9 pg (27-33); Mean Corpuscular Volume 92.7 fl (82-101); Mean Platelet Volume 9.9 fL (7.4-10.4); Monocytes # 0.5 10^3/uL (0.2-0.9); Monocytes % 6.4 %; Neutrophils # 4.08 10^3/uL (1.8-7.7); Neutrophils % 56.6 %; Nucleated Red Blood Cells % 0 %; Platelet Count 232 10^3/cmm (157-399); Red Blood Count 5.32 10^6/uL (3.85-5.65); Red Cell Distribution Width 13.9 % (12.1-15.1)
== END 2024-08-31 23:59 | disposition home or self-care (01) ==
PROVIDERS: PCP Nurse Practitioner; Visit Provider Internal Medicine
DX: R71.8 Other abnormality of red blood cells (principal)
CPT/HCPCS: 36415; 85025

== ENCOUNTER 2024-08-03 12:30 | Outpatient (CLI) | payer OTHER, SELFPAY | END 2024-08-03 12:31 | disposition home or self-care (01) | LOC: SLEEP 12:31 | PROVIDERS: PCP Nurse Practitioner; Visit Provider Internal Medicine | DX: G47.33 Obstructive sleep apnea (adult) (pediatric) (principal) | CPT/HCPCS: G0399 ==

== ENCOUNTER → 2024-08-30 08:03 | Outpatient (BNVA) | payer OTHER, SELFPAY | PROVIDERS: PCP Nurse Practitioner; Visit Provider Specialist | DX: M75.81 Other shoulder lesions, right shoulder (principal); M25.511 Pain in right shoulder; G89.29 Other chronic pain | CPT/HCPCS: 73030 ==

== ENCOUNTER 2024-09-01 06:00 | Outpatient (RCR) | payer OTHER, SELFPAY | END 2024-09-30 23:59 | disposition home or self-care (01) | LOC: MPT 06:00 | PROVIDERS: PCP Nurse Practitioner; Visit Provider Orthopaedic Surgery | DX: M54.2 Cervicalgia (principal) | CPT/HCPCS: 97110; 97140; G0283 ==

== ENCOUNTER 2024-10-01 06:00 | Outpatient (RCR) | payer OTHER, BC, MEDICAID, SELFPAY | END 2024-10-31 23:59 | disposition home or self-care (01) | LOC: MPT 06:00 | PROVIDERS: PCP Nurse Practitioner; Visit Provider Orthopaedic Surgery | DX: M54.2 Cervicalgia (principal) | CPT/HCPCS: 97110; 97140; G0283 ==

== ENCOUNTER 2024-10-05 07:58 | Outpatient (CLI) | payer OTHER, BC, MEDICAID, SELFPAY ==
--- NOTE | 2024-10-05 08:00 | IR_ITS ---
WS: [email or web address] RIGHT SHOULDER ARTHROGRAM UNDER FLUOROSCOPY. PRIOR TO MRI EVALUATION. HISTORY: right shoulder/frozen shoulder COMPARISON: None available. FLUOROSCOPY TIME: 1min [id number] # of spot films: 2 Procedure, risks and complications were explained to the patient. Consent has been obtained. Under fluoroscopic guidance the skin is marked over the medial superior third of the humeral head, cl eansed with ChloraPrep and anesthetized with lidocaine. 22-gauge spinal needle is inserted to the cor debra of the humeral head. Test injection with Omnipaque reveals the needle is appropriately positioned in the joint. A mixture of 10 cc sterile saline, 5 cc Omnipaque and 0.1 mmol gadolinium are injected under fluoroscopic guidance. Patient tolerated the joint distention well. No complications. Good contrast injection into the glenohumeral joint. No extravasation of contrast during injection. IR/IR arthrogram shoulderRT [id number] IMPRESSION: Uncomplicated RIGHT shoulder joint injection prior to MRI.
--- NOTE | 2024-10-05 08:06 | MR_ITS ---
WS: [email or web address] MRI RIGHT SHOULDER ARTHROGRAM, with and without contrast HISTORY: right shoulder/frozen shoulder COMPARISON: 12/09/2023, 10/05/2024 TECHNIQUE: Pre and postcontrast imaging. Gadolinium mixture was injected under fluoroscopy. Coronal T 1 fat sat, sagittal T2 fat sat, coronal T2 fat sat, axial proton density, axial T1 nonfat saturation views are submitted. Prearthrogram: Moderate to severe AC joint arthritis. Hypertrophic osteophytes with narrowing of the AC joint. Distal clavicular osteophytes encroach upon the supraspinatus. There is a small amount of f luid in the subacromial and subdeltoid bursa. Moderate subacromial impingement. Biceps tendon remains in the bicipital groove. There is no os acromion. No significant muscle atrophy or edema. Subchondral cyst at the insertion site of the supraspinatus t endon. There is a smaller insertion site tear involving the infraspinatus tendon. Tear extends throug h the articular surface. The bursal surface of the infraspinatus tendon is still intact. Mild tendino marcelo in the distal subscapularis tendon. Loss of the normal distal subscapularis tendon signal. Incr eased T2 signal involving the biceps tendon through the rotator cuff interval. Mild thickening of the axillary pouch. There is slight increased T2 signal and thickening of the coracohumeral ligament. No labral tears are identified. Intrasubstance degeneration and intermediate signal in the superior lab rum. Post arthrogram: None of the injected contrast extends into the subacromial or subdeltoid bursa. Geovanni entified is the articular surface insertion site tear of the infraspinatus. Tear does not extend comp letely through the tendon and there is no retraction of the tendon. There is a large tear involving the distal subscapularis tendon with injected contrast extending thro ugh the tear. Contrast communicates with the biceps tendon and rotator cuff interval. There is a larg e amount of contrast extending into the biceps tendon sheath. Middle glenohumeral ligament is small c aliber and lax. No contrast extends into the labrum. No labral tear is identified. MR/MR shoulder RT wo/w con [id number] IMPRESSION: 1. Large full-thickness tear involving the distal subscapularis tendon. Contra st communicates with the biceps tendon sheath and the rotator cuff interval. 2. No biceps tendon tear. 3. Insertion site tear of the infraspinatus tendon involves only the articular surface. 4. Moderate to severe AC joint arthritis with osteophyte encroachment upon the supraspinatus muscle and tendon.
[2024-10-05] MEDS: gadobenate dimeglumine 20 mL vial IV (09:21)
[2024-10-05] MEDS: iohexol 240 mg/mL 50 mL Btl 25 ML INTRA-ARTI (09:26)
== END 2024-10-05 07:59 | disposition home or self-care (01) ==
PROVIDERS: PCP Nurse Practitioner; Visit Provider Specialist
DX: M75.121 Complete rotator cuff tear or rupture of right shoulder, not specified as traumatic (principal); S46.091A Other injury of muscle(s) and tendon(s) of the rotator cuff of right shoulder, initial encounter; M19.011 Primary osteoarthritis, right shoulder; M25.711 Osteophyte, right shoulder; X58.XXXA Exposure to other specified factors, initial encounter
CPT/HCPCS: 23350; 73223; 77002

== ENCOUNTER → 2024-10-19 08:57 | Outpatient (BNVA) | payer OTHER, BC, MEDICAID, SELFPAY | PROVIDERS: PCP Nurse Practitioner; Visit Provider Orthopaedic Surgery | DX: M54.2 Cervicalgia (principal) | CPT/HCPCS: 72050 ==

== ENCOUNTER 2024-11-15 11:04 | Oncology outpatient (recurring) (ONCR) | payer OTHER, BC, MEDICAID, SELFPAY ==
--- NOTE | 2024-11-15 11:00 | MR_ITS ---
WS: [email or web address] MRI CERVICAL SPINE NONCONTRAST HISTORY: Neck Pain COMPARISON: None available. Technique: Multiplanar, multisequence noncontrast imaging of the cervical spine. Normal cervical alignment with no compression fracture or significant disc space narrowing. Signal within the cervical cord is normal. Visualized posterior fossa is unremarkable. Craniocervical junction, C1 and C2 relationship, odontoid process and soft tissues are normal. C2-C3: Normal. C3-C4: Normal. C4-C5: Normal. C5-C6: Small bilateral foraminal osteophytes. Very mild narrowing of the RIGHT foramen. C6-C7: Normal. C7-T1: Normal. Paraspinal soft tissue are normal. MR/MR cervical spin wo con* [id number] IMPRESSION: 1. No disc protrusions. 2. No significant central or foraminal stenosis.
[2024-11-15 11:28] LABS: Basophils % 0.6 %; Eosinophils # 0.2 10^3/uL (0.0-0.8); Eosinophils % 2.8 %; Hematocrit 49.3 % (37-53); Lymphocytes # 2.1 10^3/uL (0.8-4.8); Lymphocytes % 39.1 %; Mean Corpuscular HGB Conc 32.9 g/dL (30-55); Mean Corpuscular Hemoglobin 30.2 pg (27-33); Mean Platelet Volume 9.9 fL (7.4-10.4); Monocytes # 0.3 10^3/uL (0.2-0.9); Monocytes % 6.3 %; Neutrophils # 2.73 10^3/uL (1.8-7.7); Neutrophils % 50.8 %; Nucleated Red Blood Cells % 0 %; Platelet Count 202 10^3/cmm (157-399); Red Blood Count 5.36 10^6/uL (3.85-5.65); Red Cell Distribution Width 13.3 % (12.1-15.1); White Blood Count 5.37 10^3/uL (3.29-11.43)
[2024-11-15 11:50] LABS: Creatinine Urine, Random 35 mg/dL (39-259); Microalbumin Random Urine 3 ug/dL (0-20)
[2024-11-15 11:52] LABS: Microalbum Creatinine Ratio Ur 86 mg/dL (0-20)
[2024-11-15 11:53] LABS: Estmated Average Glucose 295; Hemoglobin A1C 11.9 % (4.0-6.0)
[2024-11-15 12:03] LABS: Alanine Aminotransferase 31 U/L (0-41); Albumin Level 4.2 g/dL (3.5-5.2); Alkaline Phosphatase 82 U/L (40-130); Anion Gap 16.1 (5-19); Aspartate Amino Transferase 24 U/L (0-40); Blood Urea Nitrogen 12 mg/dL (6-20); Calcium 9.1 mg/dL (8.5-10.5); Carbon Dioxide 23 mmol/L (22-29); Chloride 101 mmol/L (98-107); Chol HDL Ratio 4.22 mg/dL (1.0-5.00); Cholesterol 156 mg/dL (0-200); Creatinine Clr Calc Pharmacy 200.8994; Globulin 2.9 g/dL (1.3-4.6); Glucose 252 mg/dL (65-115); HDL Cholesterol 37 mg/dL (60-100); LDL Cholesterol Calculated 94 mg/dL (50-129); LDL HDL Ratio 2.54 RATIO (0.00-3.22); Osmolality Calculated 290 mOsm/kg (285-295); Potassium 4.1 mmol/L (3.5-5.1); Prostate Specific Antigen 0.208 ng/mL (0-4); Sodium 136 mmol/L (136-145); Testosterone Total 460.3 ng/dL (249-836); Total Bilirubin 0.4 mg/dL (0.15-1.2); Total Protein 7.1 g/dL (6.6-8.7); Triglycerides 126 mg/dL (0-150)
== END 2024-12-01 23:59 | disposition home or self-care (01) ==
LOC: RAD 11:05 → ONCMED 11-16 09:30
PROVIDERS: Internal Medicine; PCP Nurse Practitioner; Visit Provider Orthopaedic Surgery
DX: M54.2 Cervicalgia (principal); R71.8 Other abnormality of red blood cells; R79.89 Other specified abnormal findings of blood chemistry; E16.2 Hypoglycemia, unspecified; E11.9 Type 2 diabetes mellitus without complications
CPT/HCPCS: 36415; 72141; 80053; 80061; 82044; 83036; 84153; 84403; 85025

== ENCOUNTER 2025-02-14 13:41 | Outpatient (CLI) | payer BC, MEDICAID, SELFPAY ==
[2025-02-09 13:46] VITALS: BP 139/81; BMI 38.8
[2025-02-14 14:22] LABS: Creatinine Urine, Random 44 mg/dL (39-259); Microalbumin Random Urine 2 ug/dL (0-20)
[2025-02-14 14:24] LABS: Estmated Average Glucose 200; Hemoglobin A1C 8.6 % (4.0-6.0)
[2025-02-14 14:31] LABS: Alanine Aminotransferase 21 U/L (0-41); Albumin Level 4.4 g/dL (3.5-5.2); Alkaline Phosphatase 77 U/L (40-130); Anion Gap 17.1 (5-19); Aspartate Amino Transferase 16 U/L (0-40); Blood Urea Nitrogen 14 mg/dL (6-20); Carbon Dioxide 24 mmol/L (22-29); Chloride 102 mmol/L (98-107); Chol HDL Ratio 2.84 mg/dL (1.0-5.00); Cholesterol 122 mg/dL (0-200); Globulin 3.2 g/dL (1.3-4.6); Glucose 212 mg/dL (65-115); HDL Cholesterol 43 mg/dL (60-100); LDL Cholesterol Calculated 62 mg/dL (50-129); LDL HDL Ratio 1.44 RATIO (0.00-3.22); Osmolality Calculated 295 mOsm/kg (285-295); Potassium 4.1 mmol/L (3.5-5.1); Sodium 139 mmol/L (136-145); Thyroid Stimulating Hormone 3.84 uIU/mL (0.27-4.20); Total Bilirubin 0.4 mg/dL (0.15-1.2); Total Protein 7.6 g/dL (6.6-8.7); Triglycerides 87 mg/dL (0-150)
[2025-02-14 14:31] LABS: Microalbum Creatinine Ratio Ur 45 mg/dL (0-20)
[2025-02-14 14:52] LABS: Basophils % 0.6 %; Eosinophils # 0.1 10^3/uL (0.0-0.8); Eosinophils % 1.8 %; Hematocrit 49.6 % (37-53); Lymphocytes # 2.2 10^3/uL (0.8-4.8); Lymphocytes % 32.8 %; Mean Corpuscular HGB Conc 32.3 g/dL (30-55); Mean Corpuscular Volume 92.9 fl (82-101); Mean Platelet Volume 10.3 fL (7.4-10.4); Monocytes # 0.5 10^3/uL (0.2-0.9); Neutrophils # 3.77 10^3/uL (1.8-7.7); Neutrophils % 57.6 %; Nucleated Red Blood Cells % 0 %; Platelet Count 234 10^3/cmm (157-399); Red Blood Count 5.34 10^6/uL (3.85-5.65); Red Cell Distribution Width 14.7 % (12.1-15.1); White Blood Count 6.55 10^3/uL (3.29-11.43)
== END 2025-02-14 13:42 | disposition home or self-care (01) ==
PROVIDERS: PCP Nurse Practitioner; Visit Provider Internal Medicine
DX: E11.9 Type 2 diabetes mellitus without complications (principal); E03.9 Hypothyroidism, unspecified; E78.00 Pure hypercholesterolemia, unspecified; R79.89 Other specified abnormal findings of blood chemistry
CPT/HCPCS: 36415; 80053; 80061; 82044; 83036; 84439; 84443; 85025; J1010; J3490

== ENCOUNTER → 2025-03-15 10:43 | Outpatient (BNVA) | payer BC, MEDICAID, SELFPAY ==
[2025-02-22 12:34] VITALS: BP 139/81; BMI 38.8
== END ==
PROVIDERS: PCP Nurse Practitioner; Visit Provider Orthopaedic Surgery
DX: M54.9 Dorsalgia, unspecified (principal); M54.2 Cervicalgia
CPT/HCPCS: 72050

== ENCOUNTER 2025-05-14 09:41 | Outpatient (CLI) | payer BC, MEDICAID, SELFPAY ==
[2025-02-22 12:34] VITALS: BP 139/81; BMI 38.8
[2025-05-14 10:25] LABS: Hematocrit 49.6 % (37-53); Hemoglobin 16.00 g/dL (11.27-16.99); Mean Corpuscular HGB Conc 32.3 g/dL (30-55); Mean Corpuscular Hemoglobin 29.7 pg (27-33); Mean Corpuscular Volume 92.0 fl (82-101); Nucleated Red Blood Cells % 0 %; Platelet Count 193 10^3/cmm (157-399); Red Blood Count 5.39 10^6/uL (3.85-5.65); White Blood Count 6.03 10^3/uL (3.29-11.43)
[2025-05-14 10:39] LABS: Estmated Average Glucose 212; Hemoglobin A1C 9.0 % (4.0-6.0)
[2025-05-14 10:43] LABS: Creatinine Urine, Random 39 mg/dL (39-259); Microalbum Creatinine Ratio Ur 26 mg/dL (0-20)
[2025-05-14 10:51] LABS: Alanine Aminotransferase 22 U/L (0-41); Albumin Level 4.1 g/dL (3.5-5.2); Alkaline Phosphatase 79 U/L (40-130); Anion Gap 13.8 (5-19); Aspartate Amino Transferase 14 U/L (0-40); Blood Urea Nitrogen 15 mg/dL (6-20); Calcium 8.8 mg/dL (8.5-10.5); Carbon Dioxide 27 mmol/L (22-29); Chloride 105 mmol/L (98-107); Cholesterol 142 mg/dL (0-200); Free T4 Free Thyroxine 1.23 ng/dL (0.82-1.77); Globulin 3.1 g/dL (1.3-4.6); Glucose 224 mg/dL (65-115); HDL Cholesterol 44 mg/dL (60-100); Osmolality Calculated 300 mOsm/kg (285-295); Potassium 4.8 mmol/L (3.5-5.1); Sodium 141 mmol/L (136-145); Thyroid Stimulating Hormone 3.37 uIU/mL (0.27-4.20); Total Protein 7.2 g/dL (6.6-8.7); Triglycerides 70 mg/dL (0-150)
== END 2025-05-14 09:42 | disposition home or self-care (01) ==
LOC: LAB 09:44
PROVIDERS: PCP Nurse Practitioner; Visit Provider Internal Medicine
DX: E03.9 Hypothyroidism, unspecified (principal); E78.00 Pure hypercholesterolemia, unspecified; R79.89 Other specified abnormal findings of blood chemistry; R71.8 Other abnormality of red blood cells
CPT/HCPCS: 36415; 80053; 80061; 82044; 83036; 84403; 84439; 84443; 85025

== ENCOUNTER → 2025-07-26 10:36 | Outpatient (BNVA) | payer BC, MEDICAID, SELFPAY ==
[2025-02-22 12:34] VITALS: BP 139/81; BMI 38.8
== END ==
PROVIDERS: PCP Nurse Practitioner; Visit Provider Nurse Practitioner
DX: M25.512 Pain in left shoulder (principal)
CPT/HCPCS: 73030

== ENCOUNTER → 2025-08-15 10:15 | Outpatient (BNVA) | payer BC, MEDICAID, SELFPAY ==
[2025-02-22 12:34] VITALS: BP 139/81; BMI 38.8
== END ==
PROVIDERS: PCP Nurse Practitioner; Visit Provider Nurse Practitioner
DX: R06.00 Dyspnea, unspecified (principal); J34.89 Other specified disorders of nose and nasal sinuses; R71.8 Other abnormality of red blood cells; R79.89 Other specified abnormal findings of blood chemistry; E78.00 Pure hypercholesterolemia, unspecified; E03.9 Hypothyroidism, unspecified
CPT/HCPCS: 71046; 80053; 80061; 82043; 83036; 83880; 84403; 84439; 84443; 85025

== ENCOUNTER 2025-09-20 10:39 | Outpatient (CLI) | payer BC, SELFPAY ==
[2025-08-23 11:02] VITALS: BP 151/90; BMI 41.8
--- NOTE | 2025-09-20 11:00 | MR_ITS ---
WS: [email or web address] MRI LEFT SHOULDER HISTORY: Left shoulder pain COMPARISON: 07/26/2025 TECHNIQUE: Multiplanar sequences of the shoulder joint are submitted. Small amount of increased T2 signal in the AC joint. Small erosions involving the distal clavicle. Small hypertrophic osteophytes at the clavicle and acromion. Small amount of fluid in the subacromial and subdeltoid bursa. No os acromion. Normal biceps tendon. Slightly high riding humeral head. No fractures or marrow edema. No muscle atrophy or edema. Mild tendinopathy in the distal supraspinatus tendon. There is no tear. No labral tear. Remaining tendons are intact. Very small caliber axillary pouch. A portion of the axillary pouch appears to be flipped superiorly and extends into the inferior glenohumeral joint. Intermediate signal soft tissue extends into the inferior glenohumeral joint. This may be part of the axillary pouch and the inferior glenohumeral ligament. Small amount of edema in the rotator cuff interval. MR/MR shoulder LT wo con* [id number] IMPRESSION: 1. No rotator cuff tendon tear. 2. Increased soft tissue extends into the inferior glenohumeral joint. The inc reased soft tissue is closely associated with the axillary pouch and the inferi or glenohumeral ligaments. This may be a displaced axillary pouch or a soft tis rakan fragment. 3. Small amount of edema in the rotator cuff interval. 4. No labral tears are identified. 5. Mild AC joint arthropathy.
== END 2025-09-20 10:40 | disposition home or self-care (01) ==
LOC: RAD 10:40
PROVIDERS: PCP Nurse Practitioner; Visit Provider Orthopaedic Surgery
DX: M25.512 Pain in left shoulder (principal); M79.89 Other specified soft tissue disorders; R60.0 Localized edema; M12.812 Other specific arthropathies, not elsewhere classified, left shoulder; R93.7 Abnormal findings on diagnostic imaging of other parts of musculoskeletal system; M25.712 Osteophyte, left shoulder; M67.814 Other specified disorders of tendon, left shoulder
CPT/HCPCS: 73221

== ENCOUNTER → 2025-10-10 10:06 | Outpatient (BNVA) | payer BC, SELFPAY ==
[2025-08-23 11:02] VITALS: BP 151/90; BMI 41.8
== END ==
PROVIDERS: PCP Nurse Practitioner; Visit Provider Nurse Practitioner
DX: R09.81 Nasal congestion (principal)
CPT/HCPCS: 87400; 87426